=== PATIENT | female | born 1945 | race Native Hawaiian/Other Pacific Islander ===

== ENCOUNTER 2017-03-12 12:52 | Inpatient (IN) | payer MEDICARE ==
[2017-03-12 12:52] VITALS: BMI 16.4
--- NOTE | 2017-03-12 13:25 | C.PDOC ---
History Of Present Illness 72 y/o female pmhx colon cancer sent to ED by PMD for evaluation/ rule out right arm DVT. Pt states she woke up this morning with right arm swelling. Pt denies trauma, fever, chills, chest pain, SOB or any other complaints. Time Seen by Provider: 03/12/17 13:10 Chief Complaint (Nursing): Upper Extremity Problem/Injury History Per: Patient History/Exam Limitations: no limitations Onset/Duration Of Symptoms: Hrs Current Symptoms Are (Timing): Still Present Severity: Moderate Recent travel outside of the [place]: No Past Medical History Reviewed: Historical Data, Nursing Documentation, Vital Signs Vital Signs: Last Vital Signs Temp 98.2 F 03/12/17 13:01 Pulse 82 03/12/17 13:01 Resp 16 03/12/17 13:01 BP 147/98 H 03/12/17 13:01 Pulse Ox 100 03/12/17 15:06 - Medical History PMH: Anxiety (ABOUT DIAGNOSIS), Colonic Polyps, HTN Surgical History: Denies: Pacemaker - [facility] Procedures ENDO RECTUM POLYPECTOMY (04/24/15) OTHER AND UNSPECIFIED PARTIAL EXCISION OF LARGE INTESTINE (04/24/15) Family History: States: Unknown Family Hx - Social History Hx Alcohol Use: No Hx Substance Use: No Review Of Systems Except As Marked, All Systems Reviewed And Found Negative. Constitutional: Negative for: Fever, Chills Cardiovascular: Negative for: Chest Pain Respiratory: Negative for: Shortness of Breath Musculoskeletal: Positive for: Other (right arm swelling) Physical Exam - Physical Exam Appears: Non-toxic, No Acute Distress Skin: Warm, Dry, No Rash Head: Atraumatic, Normacephalic Neck: Normal, Normal ROM, Supple Chest: Symmetrical Cardiovascular: Rhythm Regular, No Murmur Respiratory: Normal Breath Sounds, No Rales, No Rhonchi, No Wheezing Gastrointestinal/Abdominal: Normal Exam, Soft, No Tenderness Extremity: Normal ROM, No Deformity, Swelling (moderate right arm swelling and edema) Pulses: Right Radial: Normal Neurological/Psych: Oriented x3, Normal Speech, Normal Motor, Normal Sensation ED Course And Treatment - Laboratory Results Result Diagrams: 03/12/17 13:55 03/12/17 13:55 O2 Sat by Pulse Oximetry: 100 (room air) Pulse Ox Interpretation: Normal Progress Note: Plan: labs, venous doppler right arm Medical Decision Making Medical Decision Making: r/o dvt 300 dvt positve for righ subclavian, axillary, brachial, basilic vein. lovenox dosed no cp, no sob. dr nguyen paged to update Disposition - Disposition Disposition: HOSPITALIZED Disposition Time: 15:12 Condition: FAIR - Clinical Impression Clinical Impression: DVT (deep venous thrombosis) - Scribe Statement The provider has reviewed the documentation as recorded by the Tutuibe Jorge Hernandez Provider Attestation: All medical record entries made by the Tutuibsima were at my direction and personally dictated by me. I have reviewed the chart and agree that the record accurately reflects my personal performance of the history, physical exam, medical decision making, and the department course for this patient. I have also personally directed, reviewed, and agree with the discharge instructions and disposition. Decision To Admit - Pt Status Changed To: Hospital Disposition Of: Inpatient - Admit Certification Admit to Inpatient:: After my assessment, the patient will require hospitalization for at least two midnights. This is because of the severity of symptoms shown, intensity of services needed, and/or the medical risk in this patient being treated as an outpatient. - InPatient: Physician Admission Certification: I certify that this patient requires 2 or more midnights of care for the following reason:: large dvt, needs lovenox, and monitoring. also h/o of catheter to that site, may need removal. - . Bed Request Type: Regular Admitting Physician: Reece Nguyen Patient Diagnosis: DVT (deep venous thrombosis)
[2017-03-12 14:06] LABS: BASO % 0.4 % (0.0-2.0); EOS % 0.2 % (0.0-4.0); HEMOGLOBIN 11.9 g/dL (11.0-16.0); LYMPH % 17.3 % (20.0-40.0); MEAN CELL VOLUME 88.8 fL (81.0-99.0); MEAN CORPUSCULAR HEMOGLOBIN 28.6 pg (27.0-31.0); MEAN CORPUSCULAR HGB CONC 32.2 g/dL (33.0-37.0); MEAN PLATELET VOLUME 6.8 fL (7.2-11.7); MONO # 0.6 K/uL (0.0-0.8); MONO % 11.6 % (0.0-10.0); NEUT # 3.9 K/uL (1.8-7.0); NEUT % 70.5 % (50.0-75.0); NRBC % 0.1 % (0.0-2.0); RBC 4.15 Mil/uL (3.80-5.20); RED CELL DISTRIBUTION WIDTH 15.4 % (11.5-14.5); WHITE BLOOD COUNT 5.5 K/uL (4.8-10.8)
[2017-03-12 14:15] LABS: PROTHROMBIN TIME 11.2 SECONDS (9.7-12.2)
[2017-03-12] MEDS ORDERED: Enoxaparin 40 mg Syringe SC STA (15:03)
[2017-03-12] MEDS ORDERED: Enoxaparin 60 mg Syringe ONE (15:09)
[2017-03-12 15:29] LABS: ALBUMIN 1.8 g/dL (3.5-5.0)
[2017-03-12 15:31] LABS: GFR AFRICAN-AMERICAN > 60; GFR NON-AFRICAN AMERICAN > 60
[2017-03-12 15:32] LABS: ALB/GLOB RATIO 0.7 (1.0-2.1); ALT/SGPT 23 U/L (9-52); AST/SGOT 30 U/L (14-36); BLOOD UREA NITROGEN 10 mg/dL (7-17); CALCIUM 6.1 mg/dl (8.6-10.4)
[2017-03-12] MEDS ORDERED: Potassium Chloride 20 mEq ER Tab PO STA (15:47)
[2017-03-12 17:30] VITALS: RESP 20
[2017-03-12] MEDS ORDERED: Enoxaparin 60 mg Syringe SC SCH (22:00)
--- NOTE | 2017-03-13 08:19 | CP.PCM.HP ---
History of Present Illness - History of Present Illness History of Present Illness: 72 y/o female with HTN, Colon cancer with metastasis (recent restarted on Chemo) > Patient awaken with R arm pain and swelling. She was seen n office and sent to ER. In ER - was Dx w/ R arm DVT Present on Admission - Present on Admission Any Indicators Present on Admission: Yes History of DVT/PE: No History of Uncontrolled Diabetes: No Urinary Catheter: No Decubitus Ulcer Present: No Review of Systems - Constitutional Constitutional: absent: Excessive Sweating - EENT Eyes: absent: Blurred Vision Ears: absent: Ear Discharge Nose/Mouth/Throat: absent: Nasal Congestion, Nose Pain, Sinus Pressure - Breasts Breasts: absent: Change in Shape - Cardiovascular Cardiovascular: absent: Chest Pain at Rest, Diaphoresis, Leg Edema, Palpitations , Pedal Edema - Respiratory Respiratory: absent: Dyspnea, Hemoptysis, Dyspnea on Exertion, Pain on Inspiration, Chest Congestion - Gastrointestinal Gastrointestinal: absent: Belching, Bloating, Dyspepsia, Dysphagia, Heartburn, Nausea, Vomiting - Genitourinary Genitourinary: Urinary Urgency. absent: Dysuria, Nocturia - Menstruation Menstruation: absent: Amenorrhea, Heavy Menses, Menopausal, Abnormal Vaginal Bleeding - Musculoskeletal Musculoskeletal: absent: Abnormal Gait, Muscle Weakness, Neck Pain - Integumentary Integumentary: absent: Alopecia, Changing Lesions, New Lesions, Rash - Neurological Neurological: absent: Behavioral Changes, Dizziness, Numbness, Lack of Coordination - Psychiatric Psychiatric: absent: Anhedonia, Difficulty Concentrating, Homicidal Ideation, Hopelessness - Endocrine Endocrine: absent: Cold Intolorance, Excessive Sweating, Increase in Ring/Shoe/ Hat Size - Hematologic/Lymphatic Hematologic: absent: Easy Bleeding, Easy Bruising, Lymphadenopathy Past Patient History - Past Medical History & Family History Past Medical History?: Yes - Past Social History Smoking Status: Never Smoked - CARDIAC Hx Hypertension: Yes Hx Pacemaker: No - PULMONARY Other/Comment: lung nodule - NEUROLOGICAL Hx Paralysis: No - HEENT Hx HEENT Problems: No - RENAL Hx Chronic Kidney Disease: No - ENDOCRINE/METABOLIC Hx Endocrine Disorders: No - HEMATOLOGICAL/ONCOLOGICAL Hx Blood Transfusions: Yes Hx Blood Transfusion Reaction: No - INTEGUMENTARY Hx Dermatological Problems: No - MUSCULOSKELETAL/RHEUMATOLOGICAL Hx Musculoskeletal Disorders: Yes Hx Falls: No - GASTROINTESTINAL Other/Comment: Rectal bleeding. RECTAL CANCER - GENITOURINARY/GYNECOLOGICAL Hx Genitourinary Disorders: No - PSYCHIATRIC Hx Anxiety: Yes (ABOUT DIAGNOSIS) Hx Substance Use: No - SURGICAL HISTORY Hx Surgeries: Yes - ANESTHESIA Hx Anesthesia: No Hx Anesthesia Reactions: No Hx Malignant Hyperthermia: No Meds Allergies/Adverse Reactions: Allergies Allergy/AdvReac Type Severity Reaction Status Date / Time No Known Allergies Allergy Verified 03/12/17 13:00 Physical Exam - Constitutional Appears: No Acute Distress - Eye Exam Eye Exam: absent: Normal appearance - ENT Exam ENT Exam: absent: Mucous Membranes Moist - Neck Exam Neck exam: Positive for: Full Rom. Negative for: Lymphadenopathy, Thyromegaly - Respiratory Exam Respiratory Exam: Decreased Breath Sounds, Rhonchi. absent: Rales, Wheezes - GI/Abdominal Exam GI & Abdominal Exam: Soft. absent: Rigid, Tenderness Results - Vital Signs Recent Vital Signs: Last Vital Signs Temp 97.6 F 03/13/17 00:00 Pulse 72 03/13/17 00:00 Resp 20 03/13/17 00:00 BP 122/72 03/13/17 00:00 Pulse Ox 100 03/13/17 00:00 - Labs Result Diagrams: 03/12/17 13:55 03/12/17 15:17 - EKG Data EKG comments: Not done Assessment & Plan - Assessment and Plan (Free Text) Assessment: R arm DVT; Colon cancer with mets HTN Inc Losartan Change to Eliquis
[2017-03-13] MEDS ORDERED: Potassium Chloride 20 mEq ER Tab PO SCH (10:00)
[2017-03-13 11:34] LABS: GFR AFRICAN-AMERICAN > 60; GFR NON-AFRICAN AMERICAN > 60
[2017-03-13 11:35] LABS: ALB/GLOB RATIO 0.7 (1.0-2.1); ALT/SGPT 22 U/L (9-52); AST/SGOT 27 U/L (14-36); BLOOD UREA NITROGEN 11 mg/dL (7-17); CALCIUM 7.3 mg/dl (8.6-10.4)
[2017-03-15 07:34] VITALS: BP 133/84; PULSE 74; TEMP 98.1; O2SAT 96
--- NOTE | 2017-03-15 08:14 | CP.PCM.PN ---
Subjective - Date & Time of Evaluation Date of Evaluation: 03/15/17 Time of Evaluation: 08:00 - Subjective Subjective: Patient no complain; R arm swelling slowly decrease (+) discoloration is much less; No CP, no SOB, min cough Objective - Vital Signs/Intake and Output Vital Signs (last 24 hours): Temp Pulse Resp BP Pulse Ox 98.1 F 74 20 133/84 96 03/15/17 07:31 03/15/17 07:31 03/15/17 07:31 03/15/17 07:31 03/15/17 07:31 Intake and Output: 03/15/17 03/15/17 06:59 18:59 Intake Total 180 Balance 180 - Medications Medications: Current Medications Apixaban (Eliquis) 10 mg PO BID [facility] Stop: 03/19/17 18:01 Last Admin: 03/14/17 17:42 Dose: 10 mg Losartan Potassium (Cozaar) 50 mg PO DAILY [facility] Last Admin: 03/14/17 10:02 Dose: 50 mg - Labs Labs: 03/13/17 11:14 PT 11.2 SECONDS (9.7-12.2) 03/12/17 13:55 INR 1.0 03/12/17 13:55 APTT 31 SECONDS (21-34) 03/12/17 13:55 - Constitutional Appears: No Acute Distress - Eye Exam Eye Exam: Normal appearance - ENT Exam ENT Exam: Mucous Membranes Moist - Neck Exam Neck Exam: Full ROM. absent: Lymphadenopathy, Normal Inspection - Respiratory Exam Respiratory Exam: Decreased Breath Sounds, Wheezes. absent: Rales, Rhonchi - Cardiovascular Exam Cardiovascular Exam: +S1, Murmur. absent: Gallop, JVD - GI/Abdominal Exam GI & Abdominal Exam: Soft, Normal Bowel Sounds. absent: Tenderness, Rebound - Extremities Exam Extremities Exam: Full ROM, Pedal Edema. absent: Calf Tenderness, Normal Capillary Refill Assessment and Plan - Assessment and Plan (Free Text) Assessment: Colon cancer with metastasis R arm DVT HTN will discharge today; Stress Dr Ramirez f/up
--- NOTE | 2017-03-15 11:06 | CP.PCM.PN ---
Subjective - Date & Time of Evaluation Date of Evaluation: 03/15/17 Time of Evaluation: 11:03 - Subjective Subjective: PT SEEN BY DR. GARCIA THIS MORNING AND CLEARED FOR D/C HOME. [facility] CALLED PT'S PHARMACY TO CONFIRM RX BEING SENT OVER BY DR GARCIA BUT PER THE PHARMACIST THEY DID NOT RECEIVE ANY RX. [facility] CALLED IN ELIQUIS PRESCRIPTION PER MD DIRECTIONS. PT TO F/U WITH [facility] AND [facility] WITHIN 1 WEEK. NO FURTHER ORDERS. Objective - Vital Signs/Intake and Output Vital Signs (last 24 hours): Temp Pulse Resp BP Pulse Ox 98.1 F 74 20 133/84 96 03/15/17 07:31 03/15/17 07:31 03/15/17 07:31 03/15/17 07:31 03/15/17 07:31 Intake and Output: 03/15/17 03/15/17 06:59 18:59 Intake Total 180 Balance 180 - Medications Medications: Current Medications Apixaban (Eliquis) 10 mg PO BID [facility] Stop: 03/19/17 18:01 Last Admin: 03/15/17 09:52 Dose: 10 mg Losartan Potassium (Cozaar) 50 mg PO DAILY [facility] Last Admin: 03/15/17 09:52 Dose: 50 mg - Labs Labs: 03/13/17 11:14 PT 11.2 SECONDS (9.7-12.2) 03/12/17 13:55 INR 1.0 03/12/17 13:55 APTT 31 SECONDS (21-34) 03/12/17 13:55
--- NOTE | 2017-03-15 14:35 | VASCLAB ---
PROCEDURE: Right Upper Extremity Venous Duplex Exam HISTORY: swelling r/o dvt PRIORS: None. TECHNIQUE: Right upper extremity, internal jugular, subclavian, axillary, brachial, ulnar, radial, basilic and upper cephalic veins were evaluated. Flow was assessed with color Doppler, compressibility, assessment of phasic flow and augmentation response. Report prepared by JORGE Ghosh, RVT FINDINGS: RIGHT: 1. Internal Jugular: 1.1. Compressibility - Fully compressible: Thrombus - None : Flow - Phasic: Augmentation -Normal: Reflux - None. 2. Subclavian: 2.1. Compressibility - Partial: Thrombus - Acute : Flow - Absent : Augmentation -None: Reflux - None. 3. Axillary: 3.1. Compressibility - Partial: Thrombus - Acute : Flow - Absent : Augmentation -None: Reflux - None. 4. Brachial: 4.1. Compressibility - Partial: Thrombus - Acute: Flow - Absent : Augmentation -None: Reflux - None. 5. Ulnar: 5.1. Compressibility - Fully compressible: Thrombus - None: Flow - Phasic: Augmentation -Normal: Reflux - None. 6. Radial: 6.1. Compressibility - Fully compressible: Thrombus - None: Flow - Phasic: Augmentation - Normal: Reflux - None. 7. Cephalic: 7.1. Compressibility - Fully compressible: Thrombus - None: Flow - Phasic: Augmentation -Normal: Reflux - None. 8. Basilic: 8.1. Compressibility - Partial: Thrombus - Acute: Flow - Reduced : Augmentation -None: Reflux - None. OTHER FINDINGS: RAVI Alegria notified about the findings. IMPRESSION: Right: Acute thrombosis of the right subclavian, axillary, brachial and basilic veins with mild reduction of the venous return. Normal venous flow noted in the left internal jugular and left subclavian veins.
== END 2017-03-15 12:40 | disposition home or self-care (01) | DRG 300 ==
LOC: C.ER 12:52 → C.9E 15:36 → C.3T 17:11
PROVIDERS: ADMIT Internal Medicine; ATTEND Internal Medicine
DX: I82.621 Acute embolism and thrombosis of deep veins of right upper extremity (principal); C18.9 Malignant neoplasm of colon, unspecified; C79.9 Secondary malignant neoplasm of unspecified site; I10 Essential (primary) hypertension; Z86.010 Personal history of colon polyps